=== PATIENT | female | born 1945 | race African-American/Black ===

== ENCOUNTER 2017-04-28 17:52 | Emergency (ER) | payer OTHER ==
[~2017-04-28] VITALS: Ht 170.2 cm; Wt 108.9 kg
[2017-04-28 17:59] VITALS: BP 188/86
[2017-04-28] MEDS ORDERED: BACLOFEN 10 MG TAB PO ONE (20:15)
[2017-04-28] MEDS ORDERED: IBUPROFEN 600 MG TAB PO ONE (20:15)
[2017-04-28] MEDS ORDERED: KETOROLAC TROMETH 60MG/2ML VIAL IM ONE (20:30)
== END 2017-04-28 20:58 | disposition home or self-care (01) ==
LOC: ER 18:00
DX: S13.9XXA Sprain of joints and ligaments of unspecified parts of neck, initial encounter (principal); S46.811A Strain of other muscles, fascia and tendons at shoulder and upper arm level, right arm, initial encounter; S46.812A Strain of other muscles, fascia and tendons at shoulder and upper arm level, left arm, initial encounter; E11.9 Type 2 diabetes mellitus without complications; E78.5 Hyperlipidemia, unspecified; I10 Essential (primary) hypertension; Z88.0 Allergy status to penicillin; Z88.1 Allergy status to other antibiotic agents; V43.52XA Car driver injured in collision with other type car in traffic accident, initial encounter; Y93.89 Activity, other specified; Y92.89 Other specified places as the place of occurrence of the external cause; Y99.8 Other external cause status
CPT/HCPCS: 96372; 99283; J1885